=== PATIENT | male | born 1965 | race Caucasian/White ===

== ENCOUNTER 2021-04-15 00:02 | Inpatient (IN) | payer OTHER ==
[2021-04-15] VITALS (15 sets, daily range): BP systolic 91–130; BP diastolic 53–76
[~2021-04-15] VITALS: Ht 154.9 cm; Wt 106.0 kg
[2021-04-15] MEDS ORDERED: morphine 4 MG/ML inj SYRINge IV ONE (00:30)
[2021-04-15 01:24] LABS: BASOPHILS # (AUTO) 0.1 X10'3 (0-0.2); BASOPHILS % (AUTO) 1.1 % (0-1); EOSINOPHILS # (AUTO) 0.2 X10'3 (0-0.9); EOSINOPHILS % (AUTO) 3.6 % (0-6); HEMATOCRIT 36.5 % (42.0-52.0); HEMOGLOBIN 12.4 g/dl (14.0-17.9); LYMPHOCYTES # (AUTO) 0.8 X10'3 (1.1-4.8); LYMPHOCYTES % (AUTO) 14.2 % (21-51); MEAN CORPUSCULAR HEMOGLOBIN 31.8 PG (27.0-31.0); MEAN CORPUSCULAR HGB CONC 33.8 g/dL (33.0-36.5); MEAN CORPUSCULAR VOLUME 94.1 FL (78-98); MEAN PLATELET VOLUME 7.5 FL (7.4-10.4); MONOCYTES # (AUTO) 0.6 X10'3 (0-0.9); MONOCYTES % (AUTO) 11.4 % (2-12); NEUTROPHILS # (AUTO) 3.8 X10'3 (1.8-7.7); NEUTROPHILS % (AUTO) 69.7 % (42-75); PLATELET COUNT 144 X10'3 (140-440); RED BLOOD COUNT 3.89 X10'6 (4.70-6.10); RED CELL DISTRIBUTION WIDTH 15.5 % (11.5-14.5); WHITE BLOOD COUNT 5.5 X10'3 (4.5-11.0)
[2021-04-15 01:36] LABS: ALANINE AMINOTRANSFERASE 14 U/L (12-78); ALBUMIN/GLOBULIN RATIO 0.8 (1.1-1.5); ALKALINE PHOSPHATASE 102 IU/L (46-116); ANION GAP 5 (8-16); ASPARTATE AMINO TRANSFERASE 20 U/L (10-37); BILIRUBIN,TOTAL 0.6 MG/DL (0.1-1.0); BLOOD UREA NITROGEN 9 MG/DL (7-18); BUN/CREATININE RATIO 10.5 (5.4-32.0); CALCIUM 7.9 MG/DL (8.5-10.1); CHLORIDE 103 MMOL/L (99-107); CREATININE 0.86 MG/DL (0.60-1.10); GLUCOSE 114 MG/DL (70-104); POTASSIUM 3.6 MMOL/L (3.5-5.1); SODIUM 132 MMOL/L (135-145); TOTAL PROTEIN 6.6 G/DL (6.4-8.2); eGFR > 90 ML/MIN
[2021-04-15] MEDS ORDERED: magnesium hydroxide 30ml (MOM) UD suspension PO PRN (02:25)
[2021-04-15] MEDS ORDERED: PERFLUTREN PROTEIN-A MICROSPHR (Optison) 0.22 MG/ML 3ML VIAL IV PRN (02:25)
[2021-04-15] MEDS ORDERED: ondansetron/PF 4mg/2ml inj IV PRN (02:25)
[2021-04-15] MEDS ORDERED: potassium Cl 40MEQ/1/2NS 520ml 520 ML IV PRN ×2 (02:25)
[2021-04-15] MEDS ORDERED: acetaminophen 325mg tablet PO PRN (02:25)
[2021-04-15] MEDS ORDERED: potassium Cl 20 mEq SR tablet PO PRN ×2 (02:25)
[2021-04-15] MEDS ORDERED: enoxaparin 30mg/0.3ml syringe SQ ONE (02:25)
[2021-04-15] MEDS ORDERED: mag hydrox/Alum hydrox/simeth 30ml oral suspension PO PRN (02:25)
[2021-04-15] MEDS ORDERED: aminophylline 250mg/10ml inj. IV PRN (02:30)
[2021-04-15] MEDS ORDERED: regadenoson 0.4mg/5ml syringe IV PRN (02:30)
[2021-04-15] MEDS ORDERED: metoprolol tartrate 1mg/ml inj IV PRN (02:30)
[2021-04-15] MEDS ORDERED: nitroGLYCERIN 0.4mg SUBLingual tab SL PRN (02:30)
[2021-04-15] MEDS ORDERED: enoxaparin 100mg/ml syringe SQ ONE (02:35)
[2021-04-15 02:43] LABS: HEMOGLOBIN A1C 8.7 % (4.5-6.2)
--- NOTE | 2021-04-15 04:18 | NUR ---
Patient in room PCU 3025. I have received report from ER and had the opportunity to ask questions and assume patient care.
[2021-04-15] MEDS ORDERED: morphine 2 MG/ML inj. syringe IV ONE ×5 (06:15→17:20)
[2021-04-15] MEDS: K and/or MAG REPLACEMENT MC SCH ×2 (08:00→20:00)
[2021-04-15] MEDS ORDERED: aspirin 325mg tablet, delayed-release (Ecotrin) PO SCH (08:00)
[2021-04-15] MEDS ORDERED: NO HOME MEDS (10:44)
[2021-04-15] MEDS: docusate sod 100mg capsule PO SCH ×2 (10:44→20:00)
--- NOTE | 2021-04-15 12:11 | NUR ---
Kelsea Peterson was paged regarding patient diet order . patient in PCU room 25A has an NPO order, do you want the patient to stay NPO , he has done the charlie scan exam . johanna SHELL [id number]
--- NOTE | 2021-04-15 13:19 | NUR ---
Chanell Peterson was paged about patient diet , can a patient get a diet order , he is still NPO, he has done charlie scan already, johanna, RN [id number]
[2021-04-15] MEDS ORDERED: ASPI-1071 PO (13:26)
[2021-04-15] MEDS ORDERED: OMEP20CA15 PO (13:26)
--- NOTE | 2021-04-15 15:03 | NUR ---
Noted pt with A1c 8.7% though no documentation of pt with h/o DM in EMR. TC to RN who reports pt states he was told he has DM a couple of months ago. Pt seen at bedside, confirms dx of DM a couple of months ago and states he was not given any medication or a glucometer d/t not having insurance, d/w SW who will d/w CM. Pt uninterested in learning about DM management through diet stating he will eat whatever he wants. RD informed pt of complications of poorly controlled DM and provided written DM education with RD contact information and pt encouraged to reach out for questions. Pt denies food allergies though reports he dislikes cheese and sour cream, d/w dietary. Pt denies difficulty chewing/swallowing or constipation/diarrhea. LBM this morning per pt. Of note pt documented as 61" though seems unlikely given patient's visualization. No past visits in EMR. Will continue to follow. Addendum: 04/15/21 at [address] Amended: Links added.
--- NOTE | 2021-04-15 15:46 | NUR ---
Dr. mora was paged regarding pt's pain medication patient in PCU room 25A is complaining of pain in his legs , he is asking for pain medication. SUMAYA spencer [id number]
[2021-04-15] MEDS ORDERED: LISI-790 PO (18:10)
[2021-04-15] MEDS ORDERED: METF-950 PO (18:10)
[2021-04-16 02:00] VITALS: BP 110/65
[2021-04-16 07:26] LABS: BASOPHILS % (AUTO) 0.8 % (0-1); EOSINOPHILS # (AUTO) 0.2 X10'3 (0-0.9); EOSINOPHILS % (AUTO) 3.1 % (0-6); HEMATOCRIT 39.2 % (42.0-52.0); HEMOGLOBIN 12.6 g/dl (14.0-17.9); LYMPHOCYTES # (AUTO) 0.5 X10'3 (1.1-4.8); LYMPHOCYTES % (AUTO) 9.7 % (21-51); MEAN CORPUSCULAR HEMOGLOBIN 31.2 PG (27.0-31.0); MEAN CORPUSCULAR HGB CONC 32.3 g/dL (33.0-36.5); MEAN CORPUSCULAR VOLUME 96.7 FL (78-98); MONOCYTES # (AUTO) 0.6 X10'3 (0-0.9); MONOCYTES % (AUTO) 11.1 % (2-12); NEUTROPHILS # (AUTO) 4.2 X10'3 (1.8-7.7); NEUTROPHILS % (AUTO) 75.3 % (42-75); PLATELET COUNT 139 X10'3 (140-440); RED BLOOD COUNT 4.05 X10'6 (4.70-6.10); RED CELL DISTRIBUTION WIDTH 15.7 % (11.5-14.5); WHITE BLOOD COUNT 5.5 X10'3 (4.5-11.0)
[2021-04-16 07:41] LABS: ALANINE AMINOTRANSFERASE 20 U/L (12-78); ALBUMIN 2.9 G/DL (3.4-5.0); ALBUMIN/GLOBULIN RATIO 0.8 (1.1-1.5); ALKALINE PHOSPHATASE 85 IU/L (46-116); ANION GAP 11 (8-16); ASPARTATE AMINO TRANSFERASE 14 U/L (10-37); BILIRUBIN,TOTAL 0.7 MG/DL (0.1-1.0); BLOOD UREA NITROGEN 13 MG/DL (7-18); BUN/CREATININE RATIO 15.1 (5.4-32.0); CALCIUM 8.2 MG/DL (8.5-10.1); CHLORIDE 110 MMOL/L (99-107); CHOLESTEROL 135 MG/DL (0-200); CREATININE 0.86 MG/DL (0.60-1.10); GLUCOSE 114 MG/DL (70-104); HDL CHOLESTEROL 34 MG/DL (35-60); LDL CHOLESTEROL 86 MG/DL (50-100); POTASSIUM 4.5 MMOL/L (3.5-5.1); SODIUM 146 MMOL/L (135-145); TOTAL CARBON DIOXIDE 25.2 MMOL/L (24-32); TOTAL PROTEIN 6.4 G/DL (6.4-8.2); TRIGLYCERIDES 67 MG/DL (20-135); eGFR > 90 ML/MIN
== END 2021-04-16 08:39 | disposition home or self-care (01) | DRG 311 ==
LOC: ER 00:04 → ED HOLD 02:26 → PCU 3S 04:45
PROVIDERS: ADMIT Internal Medicine; ATTEND Internal Medicine
PROC: 4A02XM4 Measurement of Cardiac Total Activity, External Approach (ICD-10-PCS; principal; 2021-04-15)
PROC: 3E073KZ Introduction of Other Diagnostic Substance into Coronary Artery, Percutaneous Approach (ICD-10-PCS; 2021-04-15)
DX: I24.9 Acute ischemic heart disease, unspecified (principal); I25.10 Atherosclerotic heart disease of native coronary artery without angina pectoris; E11.9 Type 2 diabetes mellitus without complications; F17.200 Nicotine dependence, unspecified, uncomplicated; G47.33 Obstructive sleep apnea (adult) (pediatric); I48.91 Unspecified atrial fibrillation; Z20.822 Contact with and (suspected) exposure to COVID-19; Z95.0 Presence of cardiac pacemaker; I25.2 Old myocardial infarction; Z95.5 Presence of coronary angioplasty implant and graft
CPT/HCPCS: 36415; 71045; 78452; 80053; 80061; 83036; 83880; 84484; 85025; 87635; 93005; 93017; 93306; 99285; A9500; G0378; J1650; J2270; J2785